=== PATIENT | male | born 1965 | race Caucasian/White ===

== ENCOUNTER → 2020-04-19 | Outpatient (CLI) | payer OTHER ==
[~2020-04-19] MED LIST: COL-RITE250 MG PO; NAPROSYN500 MG PO; PERCOCET 7.5-31 EACH PO; ZOFRAN4 MG PO; ZOLOFT100 MG PO
== END ==
LOC: KOH-I 08:26
DX: S43.004A Unspecified dislocation of right shoulder joint, initial encounter (principal); S43.491A Other sprain of right shoulder joint, initial encounter; S46.211A Strain of muscle, fascia and tendon of other parts of biceps, right arm, initial encounter; Z98.890 Other specified postprocedural states; W19.XXXA Unspecified fall, initial encounter
CPT/HCPCS: 73221